=== PATIENT | male | born 1995 | race American Indian/Alaskan Native ===

== ENCOUNTER 2018-02-21 12:24 | Emergency (ER) | payer BC, MEDICAID, OTHER ==
[2018-02-21 12:35] VITALS: TEMP 98.4
[2018-02-21 12:45] VITALS: RESP 16
[2018-02-21 12:46] VITALS: BMI 19.3
--- NOTE | 2018-02-21 12:46 | ED PDOC ---
Arrival/HPI - General Time Seen by Provider: 02/21/18 12:30 Historian: Patient - History of Present Illness Narrative History of Present Illness (Text): 02/21/18 12:41 22 y/o male, pmh including asthma, nkda, c/o rt. sided chest pain x 2 weeks with no fall or trauma. Aching pain, on and off, non-radiating, non-exertional, last couple seconds, no numbness or tingling, no coughing, no pleuritic pain, no pain medication taken at home, stated that it's very mild now, no numbness or tingling, not associated with eating, no palpitation, no dizziness, no other medical or psychological complaints. Past Medical History - Provider Review Nursing Documentation Reviewed: Yes - Past History Past History: No Previous - Tetanus Immunization Tetanus Immunization: Up to Date - Pulmonary Hx Asthma: Yes - Psychiatric Hx Substance Use: No - Past Surgical History Past Surgical History: No Previous Family/Social History - Physician Review Nursing Documentation Reviewed: Yes Family/Social History: Unknown Family HX Smoking Status: Heavy Smoker > 10 Cigarettes Daily Hx Alcohol Use: Yes Frequency of alcohol use: Few days per week Hx Substance Use: No Allergies/Home Meds Allergies/Adverse Reactions: Allergies No Known Allergies Allergy (Verified 02/21/18 12:35) Review of Systems - Review of Systems Constitutional: absent: Fatigue, Fevers Eyes: absent: Vision Changes ENT: absent: Hearing Changes Respiratory: absent: SOB, Cough Cardiovascular: Chest Pain Gastrointestinal: absent: Abdominal Pain, Diarrhea, Nausea, Vomiting Neurological: absent: Headache, Dizziness, Speech Changes Psychiatric: absent: Anxiety, Depression, Suicidal Ideation Physical Exam Vital Signs Reviewed: Yes Vital Signs Temp Pulse Resp BP Pulse Ox 02/21/18 15:44 57 L 16 124/78 97 02/21/18 12:45 55 L 16 119/71 95 02/21/18 12:33 98.4 F 67 18 128/81 99 Temperature: Afebrile Blood Pressure: Normal Pulse: Regular Respiratory Rate: Normal Appearance: Positive for: Well-Appearing, Non-Toxic, Comfortable Pain Distress: Mild Mental Status: Positive for: Alert and Oriented X 3 - Systems Exam Head: Present: Atraumatic, Normocephalic Pupils: Present: PERRL Extroacular Muscles: Present: EOMI Conjunctiva: Present: Normal Mouth: Present: Moist Mucous Membranes Neck: Present: Normal Range of Motion Respiratory/Chest: Present: Clear to Auscultation, Good Air Exchange, Other (+ttp on the rt. anterior muscle region with no rib/bony tenderness). No: Respiratory Distress, Accessory Muscle Use, Wheezes, Decreased Breath Sounds, Rales, Retracting, Rhonchi, Tachypneic, Tender to Palpation Cardiovascular: Present: Regular Rate and Rhythm, Normal S1, S2. No: Murmurs Abdomen: No: Tenderness, Distention, Peritoneal Signs Back: Present: Normal Inspection Upper Extremity: Present: Normal Inspection. No: Cyanosis, Edema Lower Extremity: Present: Normal Inspection. No: Edema Neurological: Present: GCS=15, CN II-XII Intact, Speech Normal, Motor Func Grossly Intact, Gait Normal, Memory Normal Skin: Present: Warm, Dry, Normal Color. No: Rashes Psychiatric: Present: Alert, Oriented x 3, Normal Insight, Normal Concentration Medical Decision Making ED Course and Treatment: 02/21/18 12:50 -labs/ua/uds -ekg -cxr -IV toradol -security monitor -observe and reassess 02/21/18 14:53 -EKG: Sinus bradycardia @ 54 BPM, no ST elevation or depression, no T wave inversion. -Chest xray show no active disease -Labs show no acute findings -Trop is negative after 24 hours -BNP is negative -UA show no UTI -UDS show no acute findings -HEART score is 1 -PERC is negative, zero -Pt. is asymptomatic now with treatment in the ER, all labs/radiology results wi th the patient, agreed on the treatment and outpatient follow up. -Discharge home with motrin, avoid caffeine or energy product, follow up with your own pmd and tax examiner within 2 days, return to the ER for any new or worsening signs or symptoms. - Lab Interpretations Lab Results: 02/21/18 13:20 02/21/18 13:20 Lab Results 02/21/18 14:00: Urine Opiates Screen Negative, Urine Methadone Screen Negative, Ur Barbiturates Screen Negative, Ur Phencyclidine Scrn Negative, Ur Amphetamines Screen Negative, U Benzodiazepines Scrn Negative, U Oth Cocaine Metabols Negativ e, U Cannabinoids Screen Negative 02/21/18 13:20: WBC 6.5, RBC 4.93, Hgb 14.8, Hct 42.4, MCV 86.0, MCH 30.0, MCHC 34.9, RDW 12.1, Plt Count 189, MPV 10.8, Gran % 47.9 L, Lymph % (Auto) 45.6 H, [place] % (Auto) 5.7, Eos % (Auto) 0.5 L, Baso % (Auto) 0.3, Gran # 3.10, Lymph # (Auto) 3.0, [place] # (Auto) 0.4, Eos # (Auto) 0.0, Baso # (Auto) 0.02 02/21/18 13:20: Sodium 140, Potassium 3.7, Chloride 105, Carbon Dioxide 27, Anion Gap 12, BUN 10, Creatinine 0.7 L, Est GFR ( Amer) > 60, Est GFR (Non-Af Amer) > 60, Random Glucose 83, Calcium 9.3, Magnesium 2.0, Total Bilirubin 0.7, AST 25, ALT 20, Alkaline Phosphatase 78, Lactate Dehydrogenase 448, Total Creatine Kinase 108, Troponin I < 0.01, NT-Pro-B Natriuret Pep 34.0, Total Protein 7.8, Albumin 4.3, Globulin 3.6, Albumin/Globulin Ratio 1.2 02/21/18 13:00: Urine Color Yellow, Urine Appearance Clear, Urine pH 6.5, Ur Specific [place] 1.010, Urine Protein Negative, Urine Glucose (UA) Negative, Urine Ketones Negative, Urine Blood Negative, Urine Nitrate Negative, Urine Bilirubin Negative, Urine Urobilinogen 0.2, Ur Leukocyte Esterase Negative - RAD Interpretation Radiology Orders: 02/21/18 12:46 CHEST TWO VIEWS (PA/LAT) [RAD] Stat no active diseaes - Medication Orders Current Medication Orders: Discontinued Medications Ketorolac Tromethamine (Toradol) 30 mg IVP STAT STA Stop: 02/21/18 12:47 Last Admin: 02/21/18 13:17 Dose: Not Given Non-Admin Reason: Patient Refused - PA / ABA TUTOR / Resident Statement / has reviewed & agrees with the documentation as recorded. Disposition/Present on Arrival - Present on Arrival Any Indicators Present on Arrival: No History of DVT/PE: No History of Uncontrolled Diabetes: No Urinary Catheter: No History of Decub. Ulcer: No History Surgical Site Infection Following: None - Disposition Have Diagnosis and Disposition been Completed?: Yes Diagnosis: Atypical chest pain Disposition: HOME/ ROUTINE Disposition Time: 14:57 Patient Plan: Discharge Condition: IMPROVED Discharge Instructions (ExitCare): Chest Pain (ED) Additional Instructions: -Discharge home with motrin, avoid caffeine or energy product, follow up with your own pmd and tax examiner within 2 days, return to the ER for any new or worsening signs or symptoms. Prescriptions: Ibuprofen [Motrin Tab] 600 mg PO QID PRN #30 tab PRN Reason: Other Referrals: Dre Tobar MD [Staff Provider] - Follow up with primary [facility] [place], [place] [Outside] - Follow up with primary Forms: WORK NOTE
[2018-02-21 13:23] LABS: PH,URINE 6.5 (4.7-8.0); URINE BILIRUBIN NEGATIVE (NEGATIVE); URINE BLOOD NEGATIVE (NEGATIVE); URINE GLUCOSE (UA) NEGATIVE (NEGATIVE); URINE LEUKOCYTE ESTERASE NEGATIVE Leu/uL (NEGATIVE); URINE PROTEIN NEGATIVE mg/dL (<30 mg/dL); URINE UROBILINOGEN 0.2 E.U./dL (<1 E.U./dL)
[2018-02-21 13:24] LABS: URINE APPEARANCE CLEAR (CLEAR); URINE COLOR YELLOW (YELLOW)
[2018-02-21 13:32] LABS: BASO # 0.02 K/mm3 (0.0-2.0); BASO % 0.3 % (0.0-3.0); EOS % 0.5 % (1.5-5.0); GRAN # 3.1 (1.4-6.5); GRAN % 47.9 % (50.0-68.0); HEMOGLOBIN 14.8 g/dL (14.0-18.0); LYMPH % 45.6 % (22.0-35.0); MEAN CORPUSCULAR HGB CONC 34.9 g/dl (31.0-37.0); MEAN PLATELET VOLUME 10.8 fl (7.0-11.0); MONO # 0.4 (0.1-0.6); MONO % 5.7 % (1.0-6.0); RBC 4.93 10^6/uL (3.5-6.1); RED CELL DISTRIBUTION WIDTH 12.1 % (11.5-14.5); WHITE BLOOD COUNT 6.5 10^3/ul (4.5-11.0)
[2018-02-21 13:39] LABS: ALB/GLOB RATIO 1.2 (1.1-1.8); ALBUMIN 4.3 g/dL (3.0-4.8); ALT/SGPT 20 U/L (7-56); AST/SGOT 25 U/L (17-59); BLOOD UREA NITROGEN 10 mg/dL (7-21); CALCIUM 9.3 mg/dL (8.4-10.5); GFR NON-AFRICAN AMERICAN > 60
[2018-02-21 13:50] LABS: TROPONIN I < 0.01 ng/mL
[2018-02-21 14:31] LABS: BARBITURATES, UR NEGATIVE (NEGATIVE); BENZODIAZEPINES, UR NEGATIVE (NEGATIVE); OPIATES, UR NEGATIVE (NEGATIVE); PHENCYCLIDINE, UR NEGATIVE (NEGATIVE)
[2018-02-21 15:44] VITALS: BP 124/78; PULSE 57; O2SAT 97
--- NOTE | 2018-02-21 16:46 | RAD ---
Date of service: 02/21/2018 HISTORY: rt. chest pain x 2 weeks COMPARISON: No prior. TECHNIQUE: Chest PA and lateral FINDINGS: LUNGS: No active pulmonary disease. PLEURA: No significant pleural effusion identified. No pneumothorax apparent. CARDIOVASCULAR: Normal. OSSEOUS STRUCTURES: No significant abnormalities. VISUALIZED UPPER ABDOMEN: Normal. OTHER FINDINGS: None. IMPRESSION: No active disease.
--- NOTE | 2018-02-22 19:59 | CARD ---
APPROVED REPORT Date of service: 02/21/2018 EKG Measurement Heart [id number] <Conclusion> Sinus bradycardia Otherwise normal ECG
== END 2018-02-21 15:45 | disposition home or self-care (01) ==
LOC: ED 12:24
DX: R07.89 Other chest pain (principal); F17.210 Nicotine dependence, cigarettes, uncomplicated
CPT/HCPCS: 71046; 80053; 81003; 82550; 83615; 83735; 83880; 84484; 85025; 93005; 99283; G0480